=== PATIENT | female | born 1950 | race Caucasian/White ===

== ENCOUNTER → 2017-04-04 | Outpatient (CLI) | payer OTHER ==
[~2017-04-04] MED LIST: ASPI325EC PO; BORAGE OIL PO; CLEAR EYES; CRANBERRY FRUIT PO; CYCL0.05OP OU; DOCU100 PO; EYE DROP; FISH1000 PO; FLAX PO; LEVO750 PO; LISI5 PO; METO25ER PO; MULVITMIND PO; OMEG1CAP30 PO; OXYC5 PO; PRED1SU OD; SENN187 PO; SIMV10 PO; [UNRECOGNIZED DRUG - OTHER] PO
[2017-04-04 18:07] LABS: Hematocrit 35.2 % (33.0-51.0); Hemoglobin 11.1 g/dL (11.5-16.0); Mean Corpuscular HGB 27.2 pg (26.0-34.0); Mean Corpuscular HGB Conc 31.5 g/dL (31.5-36.5); Mean Corpuscular Volume 86 fL (80-100); Mean Platelet Volume 11.1 fL (9.1-12.4); Platelet Count 182 K/mm3 (150-400); RDW Coefficient Variation 15.5 % (11.7-14.2); Red Blood Cell Count 4.08 M/mm3 (3.80-5.20); White Blood Cell Count 11.97 K/mm3 (4.00-11.30)
[2017-04-04 18:18] LABS: Alanine Aminotransfer (ALT/SGP 36 U/L (12-78); Albumin, Blood 2.9 g/dL (3.4-5.0); Albumin/Globulin Ratio 0.6 (0.8-1.8); Alk Phos 103 U/L (40-126); Anion Gap 10 mmol/L (6-16); Aspartate Aminotrans (AST/SGOT 36 U/L (12-37); Bilirubin, Total 0.9 mg/dL (0.1-1.0); Blood Urea Nitrogen 18 mg/dL (8-24); Bun/Creatinine Ratio 13.1 (12.0-20.0); CO2, Blood 24 mmol/L (21-32); Calcium, Blood 8.5 mg/dL (8.5-10.1); Chloride, Blood 102 mmol/L (98-108); Creatinine, Blood 1.37 mg/dL (0.40-1.00); Glomerular Filtration Rate 38 (60-); Glucose, Blood 120 mg/dL (70-99); Potassium, Blood 3.9 mmol/L (3.5-5.5); Sodium, Blood 136 mmol/L (136-145); Total Protein, Blood 7.9 g/dL (6.4-8.2)
[2017-04-04 18:19] LABS: Troponin I <0.017 ng/mL (0.000-0.040)
[2017-04-04 18:49] LABS: BAND PERCENT MAN 11 % (0-8); BASOPHILS PERCENT MAN 0 % (0-2); EOSINOPHILS PERCENT MAN 0 % (0-6); LYMPHOCYTES ABSOLUTE MAN 0.59 K/mm3 (0.84-5.20); LYMPHOCYTES PERCENT MAN 5 % (21-46); MONOCYTES ABSOLUTE MAN 0.11 K/mm3 (0.16-1.47); MONOCYTES PERCENT MAN 1 % (4-13); NEUTROPHILS ABSOLUTE MAN 11.25 K/mm3 (1.96-9.15); SEG NEUTROPHILS PERCENT MAN 83 % (41-73); TOTAL CELLS COUNTED 100
== END | disposition home or self-care (01) ==
LOC: LAB EV 17:57
PROVIDERS: Physician Assistant
DX: R07.9 Chest pain, unspecified (principal)
CPT/HCPCS: 80053; 84484; 85025

== ENCOUNTER → 2019-02-08 | Outpatient (CLI) | payer OTHER | END | disposition home or self-care (01) | LOC: LAB EV 10:51 → LAB SHORT 10:51 | DX: J02.9 Acute pharyngitis, unspecified (principal) | CPT/HCPCS: 87081 ==

== ENCOUNTER 2020-03-27 11:35 | Day surgery (SDC) | payer OTHER ==
[~2020-03-27] VITALS: Ht 154.9 cm; Wt 59.8 kg
[~2020-03-27 11:35] MED LIST changes: +ACET325; +C COMPLEX1000 M1; +EUTHYROX50 MCG PO; +FISH OIL 1,001000 M1 PO; +FISH OIL 1,2001 EAC7; +Floxin10 ML; +LEVOTHYROXINE50 MCG; +LOSA50; +LOSA50 PO; +MELATONIN5 M1 PO; +MELATONIN5 M4; +METO25 PO; +PROM12.5S; +[UNRECOGNIZED DRUG - CODE] PO
[2020-03-27] MEDS ORDERED: Lopressor 25 mg25 MG (12:06)
[2020-03-28 13:27] LABS: Performing Lab SYMBIODX; Test Name TISSUE BIOPSY
[2020-04-07 07:53] LABS: Result SEE PATHOTH RESULTS
== END 2020-03-27 13:32 | disposition home or self-care (01) ==
LOC: ORSCSDS 11:35
PROVIDERS: Pathology Clinical Pathology/Laboratory Medicine; Student in an Organized Health Care Education/Training Program
PROC: 0W3P8ZZ Control Bleeding in Gastrointestinal Tract, Via Natural or Artificial Opening Endoscopic (ICD-10-PCS; principal; 2020-03-27 13:15)
PROC: 0DB78ZX Excision of Stomach, Pylorus, Via Natural or Artificial Opening Endoscopic, Diagnostic (ICD-10-PCS; principal; 2020-03-27 13:15)
PROC: 0DB48ZX Excision of Esophagogastric Junction, Via Natural or Artificial Opening Endoscopic, Diagnostic (ICD-10-PCS; principal; 2020-03-27 13:15)
DX: R13.10 Dysphagia, unspecified (principal); K25.4 Chronic or unspecified gastric ulcer with hemorrhage; I10 Essential (primary) hypertension; E03.9 Hypothyroidism, unspecified; N18.9 Chronic kidney disease, unspecified; I25.10 Atherosclerotic heart disease of native coronary artery without angina pectoris; G47.33 Obstructive sleep apnea (adult) (pediatric); D50.9 Iron deficiency anemia, unspecified; N25.81 Secondary hyperparathyroidism of renal origin; Z79.899 Other long term (current) drug therapy
CPT/HCPCS: 81261; 88305; 88341; 88342; 88360; J2704; J7120

== ENCOUNTER → 2020-05-10 | Outpatient (CLI) | payer OTHER ==
[~2020-05-10] MED LIST changes: +Lopressor 25 mg25 MG
[2020-05-24 10:43] LABS: Performing Lab SYMBODX; Test Name MALT FISH
== END | disposition home or self-care (01) ==
LOC: PLD 10:38 → LAB SHORT 10:38
PROVIDERS: Internal Medicine Hematology & Oncology
DX: C88.4 Extranodal marginal zone B-cell lymphoma of mucosa-associated lymphoid tissue [MALT-lymphoma] (principal)
CPT/HCPCS: 88374

== ENCOUNTER 2020-07-31 08:34 | Day surgery (SDC) | payer OTHER ==
[~2020-07-31] VITALS: Ht 157.5 cm; Wt 58.3 kg
== END 2020-07-31 11:01 | disposition home or self-care (01) ==
LOC: ORSCSDS 08:34
PROVIDERS: Student in an Organized Health Care Education/Training Program
PROC: 0DB78ZX Excision of Stomach, Pylorus, Via Natural or Artificial Opening Endoscopic, Diagnostic (ICD-10-PCS; principal; 2020-07-31 10:45)
DX: C88.4 Extranodal marginal zone B-cell lymphoma of mucosa-associated lymphoid tissue [MALT-lymphoma] (principal); R13.14 Dysphagia, pharyngoesophageal phase; K29.70 Gastritis, unspecified, without bleeding; I25.2 Old myocardial infarction; I10 Essential (primary) hypertension; E03.9 Hypothyroidism, unspecified; N18.9 Chronic kidney disease, unspecified; Z79.899 Other long term (current) drug therapy
CPT/HCPCS: 88305; 88341; 88342; J2704; J7120

== ENCOUNTER → 2021-08-09 | Outpatient (CLI) | payer OTHER | END | disposition home or self-care (01) | LOC: LAB SHORT 13:15 → LAB 13:15 | DX: R06.00 Dyspnea, unspecified (principal); R93.89 Abnormal findings on diagnostic imaging of other specified body structures | CPT/HCPCS: 87070; 87077; 87185; 87186; 87205 ==

== ENCOUNTER 2021-08-27 14:44 | Inpatient (IN) | payer OTHER ==
[~2021-08-27] VITALS: Ht 154.9 cm; Wt 52.3 kg
[~2021-08-27 14:44] MED LIST changes: -LEVOTHYROXINE50 MCG; +LEVOTHYROXINE50 MCG PO; -LOSA50; -Lopressor 25 mg25 MG; +Lopressor 25 mg25 MG PO
[2021-08-27 15:39] LABS: BASOPHILS ABSOLUTE AUTO 0.01 K/mm3 (0.00-0.23); BASOPHILS PERCENT AUTO 0 % (0-2); EOSINOPHILS ABSOLUTE AUTO 0.03 K/mm3 (0.00-0.68); EOSINOPHILS PERCENT AUTO 1 % (0-6); Hematocrit 33.4 % (33.0-51.0); Hemoglobin 10.6 g/dL (11.5-16.0); Mean Corpuscular HGB 26.8 pg (26.0-34.0); Mean Corpuscular HGB Conc 31.7 g/dL (31.5-36.5); Mean Corpuscular Volume 85 fL (80-100); Mean Platelet Volume 11.2 fL (9.1-12.4); Platelet Count 191 K/mm3 (150-400); RDW Coefficient Variation 16.9 % (11.7-14.2); RDW Standard Deviation 52.6 fL (35.1-46.3); Red Blood Cell Count 3.95 M/mm3 (3.80-5.20); White Blood Cell Count 6.17 K/mm3 (4.00-11.30)
[2021-08-27 15:43] LABS: IMMATURE GRAN ABSOLUTE AUTO 0.07 K/mm3 (0.00-0.10); IMMATURE GRAN PERCENT AUTO 1 % (0-1); LYMPHOCYTES ABSOLUTE AUTO 0.22 K/mm3 (0.84-5.20); LYMPHOCYTES PERCENT AUTO 4 % (21-46); MONOCYTES ABSOLUTE AUTO 0.21 K/mm3 (0.16-1.47); MONOCYTES PERCENT AUTO 3 % (4-13); NEUTROPHILS ABSOLUTE AUTO 5.63 K/mm3 (1.96-9.15); NEUTROPHILS PERCENT AUTO 91 % (41-73)
[2021-08-27 16:02] LABS: Albumin, Blood 2.2 g/dL (3.4-5.0); Albumin/Globulin Ratio 0.4 (0.8-1.8); Bilirubin, Total 0.3 mg/dL (0.1-1.0); Bun/Creatinine Ratio 24.4 (12.0-20.0); Calcium, Blood 7.9 mg/dL (8.5-10.1); Creatinine, Blood 1.64 mg/dL (0.40-1.00); Globulin, Blood 5.1 g/dL (2.2-4.0); Potassium, Blood 4.9 mmol/L (3.5-5.5); Total Protein, Blood 7.3 g/dL (6.4-8.2)
[2021-08-27 20:27] LABS: Bun/Creatinine Ratio 25.9 (12.0-20.0); Calcium, Blood 7.6 mg/dL (8.5-10.1); Creatinine, Blood 1.39 mg/dL (0.40-1.00); Potassium, Blood 4.4 mmol/L (3.5-5.5)
[2021-08-27] MEDS ORDERED: ALBU2.5V5 INH (21:05)
[2021-08-28 01:49] LABS: Source, Urine Clean Catch
[2021-08-28 01:55] LABS: Bilirubin, Urine Neg (Neg); Blood, Urine 1+ (Neg); Color, Urine Yellow (P-Yellow); Glucose Qualitative, Urine Neg (Neg); Ketones, Urine Neg (Neg); Leukocyte Esterase, Urine Neg (Neg); Nitrite, Urine Neg (Neg); Protein, Urine 1+ (Neg); Urobilinogen, Urine NORM (Normal)
[2021-08-28 02:02] LABS: Appearance, Urine Clear (Clear)
[2021-08-28 02:03] LABS: Hyaline Casts 0-2 /lpf (0-2)
[2021-08-28 02:04] LABS: Bacteria Mod /hpf; Red Blood Cells, Urine 0-2 /hpf (0-2); Squamous Epithelial Cells Few /hpf (Few)
[2021-08-28 04:14] LABS: BASOPHILS PERCENT AUTO 0 % (0-2); EOSINOPHILS PERCENT AUTO 0 % (0-6); Hematocrit 29.2 % (33.0-51.0); Hemoglobin 9.3 g/dL (11.5-16.0); IMMATURE GRAN ABSOLUTE AUTO 0.04 K/mm3 (0.00-0.10); IMMATURE GRAN PERCENT AUTO 1 % (0-1); LYMPHOCYTES ABSOLUTE AUTO 0.07 K/mm3 (0.84-5.20); LYMPHOCYTES PERCENT AUTO 2 % (21-46); MONOCYTES ABSOLUTE AUTO 0.07 K/mm3 (0.16-1.47); MONOCYTES PERCENT AUTO 2 % (4-13); Mean Corpuscular HGB Conc 31.8 g/dL (31.5-36.5); Mean Corpuscular Volume 85 fL (80-100); Mean Platelet Volume 11.1 fL (9.1-12.4); NEUTROPHILS ABSOLUTE AUTO 2.83 K/mm3 (1.96-9.15); NEUTROPHILS PERCENT AUTO 94 % (41-73); Platelet Count 130 K/mm3 (150-400); RDW Standard Deviation 52.3 fL (35.1-46.3); Red Blood Cell Count 3.45 M/mm3 (3.80-5.20); White Blood Cell Count 3.01 K/mm3 (4.00-11.30)
[2021-08-28 04:46] LABS: Alanine Aminotransfer (ALT/SGP 52 U/L (12-78); Albumin, Blood 1.8 g/dL (3.4-5.0); Albumin/Globulin Ratio 0.4 (0.8-1.8); Alk Phos 97 U/L (50-136); Anion Gap 8 mmol/L (6-16); Aspartate Aminotrans (AST/SGOT 93 U/L (12-37); Bilirubin, Direct <0.1 mg/dL (0.0-0.3); Bilirubin, Indirect Unable to Calculate mg/dL (0.1-0.7); Bilirubin, Total 0.2 mg/dL (0.1-1.0); Blood Urea Nitrogen 31 mg/dL (8-24); Bun/Creatinine Ratio 28.7 (12.0-20.0); CO2, Blood 17 mmol/L (21-32); Calcium, Blood 7.6 mg/dL (8.5-10.1); Chloride, Blood 106 mmol/L (98-108); Creatinine, Blood 1.08 mg/dL (0.40-1.00); Glomerular Filtration Rate 55 (60-); Glucose, Blood 74 mg/dL (70-99); Potassium, Blood 4.2 mmol/L (3.5-5.5); Sodium, Blood 131 mmol/L (136-145); Total Protein, Blood 5.8 g/dL (6.4-8.2)
[2021-08-29 04:37] LABS: BASOPHILS PERCENT AUTO 0 % (0-2); EOSINOPHILS PERCENT AUTO 0 % (0-6); Hematocrit 29.4 % (33.0-51.0); Hemoglobin 9.2 g/dL (11.5-16.0); Mean Corpuscular HGB 26.8 pg (26.0-34.0); Mean Corpuscular HGB Conc 31.3 g/dL (31.5-36.5); Mean Corpuscular Volume 86 fL (80-100); Mean Platelet Volume 11.2 fL (9.1-12.4); Platelet Count 119 K/mm3 (150-400); RDW Coefficient Variation 17.3 % (11.7-14.2); RDW Standard Deviation 54.2 fL (35.1-46.3); Red Blood Cell Count 3.43 M/mm3 (3.80-5.20); White Blood Cell Count 2.49 K/mm3 (4.00-11.30)
[2021-08-29 04:56] LABS: IMMATURE GRAN ABSOLUTE AUTO 0.02 K/mm3 (0.00-0.10); IMMATURE GRAN PERCENT AUTO 1 % (0-1); LYMPHOCYTES ABSOLUTE AUTO 0.03 K/mm3 (0.84-5.20); LYMPHOCYTES PERCENT AUTO 1 % (21-46); MONOCYTES ABSOLUTE AUTO 0.07 K/mm3 (0.16-1.47); MONOCYTES PERCENT AUTO 3 % (4-13); NEUTROPHILS ABSOLUTE AUTO 2.37 K/mm3 (1.96-9.15); NEUTROPHILS PERCENT AUTO 95 % (41-73)
[2021-08-29 04:59] LABS: Albumin, Blood 1.8 g/dL (3.4-5.0); Anion Gap 8 mmol/L (6-16); Blood Urea Nitrogen 22 mg/dL (8-24); Bun/Creatinine Ratio 27.9 (12.0-20.0); CO2, Blood 16 mmol/L (21-32); Calcium, Blood 7.3 mg/dL (8.5-10.1); Chloride, Blood 109 mmol/L (98-108); Creatinine, Blood 0.79 mg/dL (0.40-1.00); Glomerular Filtration Rate 80 (60-); Glucose, Blood 74 mg/dL (70-99); Phosphorus, Blood 2.1 mg/dL (2.5-4.9); Potassium, Blood 4.4 mmol/L (3.5-5.5); Sodium, Blood 133 mmol/L (136-145)
[2021-08-29] MEDS ORDERED: ACET500 PO (12:08)
[2021-08-29] MEDS ORDERED: AUGMENTIN 500-1 EACH PO (12:09)
[2021-08-29] MEDS ORDERED: VISBIOME 112.51 EACH PO (12:10)
== END 2021-08-29 12:58 | disposition home health service (06) | DRG 315 ==
LOC: ER 14:44 → PCU 20:15
PROVIDERS: Internal Medicine; Physician Assistant; ADMIT Internal Medicine
DX: I95.9 Hypotension, unspecified (principal); N17.9 Acute kidney failure, unspecified; E87.1 Hypo-osmolality and hyponatremia; C16.9 Malignant neoplasm of stomach, unspecified; C88.4 Extranodal marginal zone B-cell lymphoma of mucosa-associated lymphoid tissue [MALT-lymphoma]; W18.30XA Fall on same level, unspecified, initial encounter; R63.4 Abnormal weight loss; E03.9 Hypothyroidism, unspecified; N18.30 Chronic kidney disease, stage 3 unspecified; I12.9 Hypertensive chronic kidney disease with stage 1 through stage 4 chronic kidney disease, or unspecified chronic kidney disease; Z98.49 Cataract extraction status, unspecified eye; D63.1 Anemia in chronic kidney disease; I25.10 Atherosclerotic heart disease of native coronary artery without angina pectoris; Z95.1 Presence of aortocoronary bypass graft; Z92.3 Personal history of irradiation; Z88.8 Allergy status to other drugs, medicaments and biological substances; Z79.899 Other long term (current) drug therapy; Z66 Do not resuscitate; E78.00 Pure hypercholesterolemia, unspecified
CPT/HCPCS: 36415; 71045; 80048; 80053; 80069; 80076; 81001; 82550; 83605; 85025; 87086; 94760; 94762; 96374; 96375; 97110; 97162; 97166; 97530; 97535; 99285-25; A9270; J0610; J0696; J1650; J7030

== ENCOUNTER 2021-10-07 10:29 | Emergency (ER) | payer OTHER ==
[~2021-10-07] VITALS: Ht 154.9 cm; Wt 51.7 kg
[~2021-10-07 10:29] MED LIST changes: +ACET500 PO; +ALBU2.5V5 INH; +AUGMENTIN 500-1 EACH PO; +VISBIOME 112.51 EACH PO
== END 2021-10-07 10:57 | disposition home or self-care (01) ==
LOC: ER 10:29
DX: S41.111A Laceration without foreign body of right upper arm, initial encounter (principal); S00.83XA Contusion of other part of head, initial encounter; W01.0XXA Fall on same level from slipping, tripping and stumbling without subsequent striking against object, initial encounter; I10 Essential (primary) hypertension; I25.10 Atherosclerotic heart disease of native coronary artery without angina pectoris; Z88.5 Allergy status to narcotic agent; Z79.899 Other long term (current) drug therapy; Z23 Encounter for immunization
CPT/HCPCS: 90714

== ENCOUNTER 2022-04-09 06:36 | Day surgery (SDC) | payer OTHER ==
[~2022-04-09] VITALS: Ht 154.9 cm; Wt 46.2 kg
[~2022-04-09 06:36] MED LIST changes: +OMEP20ER
[2022-04-09] MEDS ORDERED: IBUP200 (07:10)
[2022-04-09] MEDS ORDERED: EUTHYROX50 MCG (07:11)
[2022-04-09] MEDS ORDERED: PROM12.5S (07:11)
[2022-04-09] MEDS ORDERED: LOSA50 (07:16)
[2022-04-09] MEDS ORDERED: METO25ER (07:16)
[2022-04-16 12:13] LABS: Performing Lab SYMBIODX; Test Name TISSUE BIOPSY
[2022-04-25 10:54] LABS: Result SEE SEPARATE RESULT
== END 2022-04-09 08:52 | disposition home or self-care (01) ==
LOC: ORSCSDS 06:36
PROVIDERS: Pathology Anatomic Pathology & Clinical Pathology; Student in an Organized Health Care Education/Training Program
PROC: 0D768ZZ Dilation of Stomach, Via Natural or Artificial Opening Endoscopic (ICD-10-PCS; principal; 2022-04-09 08:00)
PROC: 0DB78ZX Excision of Stomach, Pylorus, Via Natural or Artificial Opening Endoscopic, Diagnostic (ICD-10-PCS; principal; 2022-04-09 08:00)
DX: C88.4 Extranodal marginal zone B-cell lymphoma of mucosa-associated lymphoid tissue [MALT-lymphoma] (principal); K29.70 Gastritis, unspecified, without bleeding; R13.14 Dysphagia, pharyngoesophageal phase; K44.9 Diaphragmatic hernia without obstruction or gangrene; K31.1 Adult hypertrophic pyloric stenosis; K25.9 Gastric ulcer, unspecified as acute or chronic, without hemorrhage or perforation; I10 Essential (primary) hypertension; K21.9 Gastro-esophageal reflux disease without esophagitis; E03.9 Hypothyroidism, unspecified; I25.10 Atherosclerotic heart disease of native coronary artery without angina pectoris; N18.30 Chronic kidney disease, stage 3 unspecified; Z79.899 Other long term (current) drug therapy
CPT/HCPCS: 88305; 88341; 88342; C1726; J2704; J7120

== ENCOUNTER 2022-07-25 14:02 | Emergency (ER) | payer OTHER ==
[~2022-07-25] VITALS: Ht 154.9 cm; Wt 47.2 kg
[~2022-07-25 14:02] MED LIST changes: +EUTHYROX50 MCG; +IBUP200; +LOSA50; +METO25ER
[2022-07-25 15:06] LABS: BASOPHILS PERCENT AUTO 0 % (0-2); EOSINOPHILS PERCENT AUTO 0 % (0-6); Hematocrit 33.1 % (33.0-51.0); Hemoglobin 10.2 g/dL (11.5-16.0); IMMATURE GRAN ABSOLUTE AUTO 0.01 K/mm3 (0.00-0.10); IMMATURE GRAN PERCENT AUTO 0 % (0-1); LYMPHOCYTES PERCENT AUTO 12 % (21-46); MONOCYTES ABSOLUTE AUTO 0.21 K/mm3 (0.16-1.47); MONOCYTES PERCENT AUTO 8 % (4-13); Mean Corpuscular HGB 27.8 pg (26.0-34.0); Mean Corpuscular HGB Conc 30.8 g/dL (31.5-36.5); Mean Corpuscular Volume 90 fL (80-100); NEUTROPHILS PERCENT AUTO 79 % (41-73); RDW Coefficient Variation 15.4 % (11.7-14.2); RDW Standard Deviation 50.5 fL (35.1-46.3); Red Blood Cell Count 3.67 M/mm3 (3.80-5.20); White Blood Cell Count 2.67 K/mm3 (4.00-11.30)
[2022-07-25 15:08] LABS: LYMPHOCYTES ABSOLUTE AUTO 0.32 K/mm3 (0.84-5.20); Mean Platelet Volume 10.4 fL (9.1-12.4); NEUTROPHILS ABSOLUTE AUTO 2.08 K/mm3 (1.96-9.15); Platelet Count 131 K/mm3 (150-400)
[2022-07-25 15:46] LABS: Albumin, Blood 1.7 g/dL (3.4-5.0); Albumin/Globulin Ratio 0.3 (0.8-1.8); Bilirubin, Total 0.4 mg/dL (0.1-1.0); Bun/Creatinine Ratio 20.2 (12.0-20.0); Calcium, Blood 10.1 mg/dL (8.5-10.1); Creatinine, Blood 1.09 mg/dL (0.40-1.00); Globulin, Blood 6.5 g/dL (2.2-4.0); Magnesium, Blood 2.4 mg/dL (1.6-2.4); Phosphorus, Blood 4.3 mg/dL (2.5-4.9); Potassium, Blood 2.9 mmol/L (3.5-5.5); Total Protein, Blood 8.2 g/dL (6.4-8.2)
[2022-07-25 16:15] VITALS: BP 173/84
[2022-07-25] MEDS ORDERED: K-TAB ER20 ME1 PO (16:51)
== END 2022-07-25 17:00 | disposition home or self-care (01) ==
LOC: ER 14:02
PROVIDERS: Physician Assistant
DX: E87.6 Hypokalemia (principal); R19.7 Diarrhea, unspecified; C85.10 Unspecified B-cell lymphoma, unspecified site; D61.818 Other pancytopenia; Z88.5 Allergy status to narcotic agent; Z79.899 Other long term (current) drug therapy; I25.10 Atherosclerotic heart disease of native coronary artery without angina pectoris; E78.00 Pure hypercholesterolemia, unspecified; I10 Essential (primary) hypertension
CPT/HCPCS: 36415; 80053; 83735; 84100; 85025; 93005; 93010; 99283-25; A9270

== ENCOUNTER → 2022-09-26 | Outpatient (CLI) | payer OTHER ==
[~2022-09-26] MED LIST changes: +K-TAB ER20 ME1 PO
[2022-09-26 10:50] LABS: BASOPHILS ABSOLUTE AUTO 0.03 K/mm3 (0.00-0.23); BASOPHILS PERCENT AUTO 1 % (0-2); Hematocrit 32.1 % (33.0-51.0); Hemoglobin 9.7 g/dL (11.5-16.0); LYMPHOCYTES ABSOLUTE AUTO 0.43 K/mm3 (0.84-5.20); LYMPHOCYTES PERCENT AUTO 8 % (21-46); MONOCYTES PERCENT AUTO 7 % (4-13); Mean Corpuscular HGB Conc 30.2 g/dL (31.5-36.5); Mean Corpuscular Volume 76 fL (80-100); Mean Platelet Volume 10.1 fL (9.1-12.4); Platelet Count 469 K/mm3 (150-400); RDW Coefficient Variation 16.9 % (11.7-14.2); RDW Standard Deviation 46.6 fL (35.1-46.3); Red Blood Cell Count 4.21 M/mm3 (3.80-5.20); White Blood Cell Count 5.66 K/mm3 (4.00-11.30)
[2022-09-26 11:07] LABS: Albumin, Blood 1.7 g/dL (3.4-5.0); Albumin/Globulin Ratio 0.3 (0.8-1.8); Bilirubin, Total 0.2 mg/dL (0.1-1.0); Bun/Creatinine Ratio 39.7 (12.0-20.0); Calcium, Blood 8.3 mg/dL (8.5-10.1); Creatinine, Blood 0.73 mg/dL (0.40-1.00); Globulin, Blood 6.4 g/dL (2.2-4.0); Potassium, Blood 4.7 mmol/L (3.5-5.5); Total Protein, Blood 8.1 g/dL (6.4-8.2)
[2022-09-26 11:20] LABS: EOSINOPHILS ABSOLUTE AUTO 0.01 K/mm3 (0.00-0.68); EOSINOPHILS PERCENT AUTO 0 % (0-6); IMMATURE GRAN ABSOLUTE AUTO 0.69 K/mm3 (0.00-0.10); IMMATURE GRAN PERCENT AUTO 12 % (0-1); NEUTROPHILS PERCENT AUTO 72 % (41-73)
== END | disposition home or self-care (01) ==
LOC: LAB 10:45 → LAB SHORT 10:45
PROVIDERS: Physician Assistant
DX: R22.1 Localized swelling, mass and lump, neck (principal)
CPT/HCPCS: 80053; 85025

== ENCOUNTER → 2022-10-09 | Outpatient (CLI) | payer OTHER | END | disposition home or self-care (01) | LOC: PLD 07:39 → LAB SHORT 07:39 → LAB 07:39 | DX: D49.0 Neoplasm of unspecified behavior of digestive system (principal) | CPT/HCPCS: 88173 ==

== ENCOUNTER → 2022-10-10 | Outpatient (CLI) | payer OTHER ==
[2022-10-10 16:08] LABS: Hematocrit 32.8 % (33.0-51.0); Hemoglobin 9.5 g/dL (11.5-16.0); Mean Corpuscular HGB 22.1 pg (26.0-34.0); Mean Corpuscular Volume 76 fL (80-100); Mean Platelet Volume 10.2 fL (9.1-12.4); Platelet Count 323 K/mm3 (150-400); RDW Coefficient Variation 17.9 % (11.7-14.2); RDW Standard Deviation 48.3 fL (35.1-46.3); White Blood Cell Count 4.68 K/mm3 (4.00-11.30)
[2022-10-10 16:59] LABS: BAND PERCENT MAN 6 % (0-8); BASOPHILS PERCENT MAN 0 % (0-2); EOSINOPHILS PERCENT MAN 0 % (0-6); LYMPHOCYTES ABSOLUTE MAN 0.79 K/mm3 (0.84-5.20); LYMPHOCYTES PERCENT MAN 17 % (21-46); MONOCYTES ABSOLUTE MAN 0.56 K/mm3 (0.16-1.47); MONOCYTES PERCENT MAN 12 % (4-13); NEUTROPHILS ABSOLUTE MAN 3.32 K/mm3 (1.96-9.15); SEG NEUTROPHILS PERCENT MAN 65 % (41-73); TOTAL CELLS COUNTED 100
[2022-10-10 17:32] LABS: Albumin, Blood 1.8 g/dL (3.4-5.0); Albumin/Globulin Ratio 0.3 (0.8-1.8); Bilirubin, Total 0.2 mg/dL (0.1-1.0); Bun/Creatinine Ratio 43.5 (12.0-20.0); Calcium, Blood 7.9 mg/dL (8.5-10.1); Creatinine, Blood 0.71 mg/dL (0.40-1.00); Globulin, Blood 5.3 g/dL (2.2-4.0); Total Protein, Blood 7.1 g/dL (6.4-8.2)
== END ==
LOC: LAB FUT 09-06 15:00 → LAB 13:57 → LAB SHORT 13:57 → LAB FUT 08-01 14:20
PROVIDERS: Internal Medicine Hematology & Oncology
DX: C88.4 Extranodal marginal zone B-cell lymphoma of mucosa-associated lymphoid tissue [MALT-lymphoma] (principal)
CPT/HCPCS: 36415; 80053; 85025

== ENCOUNTER 2022-10-19 19:38 | Inpatient (IN) | payer OTHER ==
[~2022-10-19] VITALS: Ht 160 cm; Wt 38.1 kg
[~2022-10-19 19:38] MED LIST changes: -EUTHYROX50 MCG; -OMEP20ER; +OMEP20ER PO
[2022-10-19 21:01] LABS: Hematocrit 32.1 % (33.0-51.0); Hemoglobin 9.4 g/dL (11.5-16.0); Mean Corpuscular HGB 21.9 pg (26.0-34.0); Mean Corpuscular HGB Conc 29.3 g/dL (31.5-36.5); Mean Corpuscular Volume 75 fL (80-100); Mean Platelet Volume 9.2 fL (9.1-12.4); Platelet Count 312 K/mm3 (150-400); RDW Standard Deviation 48.2 fL (35.1-46.3); White Blood Cell Count 3.13 K/mm3 (4.00-11.30)
[2022-10-19 21:26] LABS: BAND PERCENT MAN 4 % (0-8); BASOPHILS PERCENT MAN 0 % (0-2); EOSINOPHILS PERCENT MAN 0 % (0-6); LYMPHOCYTES % ATYPICAL MANUAL 1 % (0-0); LYMPHOCYTES ABSOLUTE MAN 0.28 K/mm3 (0.84-5.20); LYMPHOCYTES PERCENT MAN 8 % (21-46); MONOCYTES ABSOLUTE MAN 0.21 K/mm3 (0.16-1.47); MONOCYTES PERCENT MAN 7 % (4-13); NEUTROPHILS ABSOLUTE MAN 2.62 K/mm3 (1.96-9.15); SEG NEUTROPHILS PERCENT MAN 80 % (41-73); TOTAL CELLS COUNTED 100
[2022-10-19 21:30] LABS: Albumin, Blood 1.7 g/dL (3.4-5.0); Albumin/Globulin Ratio 0.3 (0.8-1.8); Bilirubin, Total 0.2 mg/dL (0.1-1.0); Bun/Creatinine Ratio 44.5 (12.0-20.0); Calcium, Blood 7.9 mg/dL (8.5-10.1); Creatinine, Blood 0.54 mg/dL (0.40-1.00); Globulin, Blood 5.4 g/dL (2.2-4.0); Potassium, Blood 5.1 mmol/L (3.5-5.5); Total Protein, Blood 7.1 g/dL (6.4-8.2)
[2022-10-19 23:52] LABS: Source, Urine Clean Catch
[2022-10-19 23:56] LABS: Bilirubin, Urine Neg (Neg); Blood, Urine Neg (Neg); Glucose Qualitative, Urine Neg (Neg); Ketones, Urine Neg (Neg); Leukocyte Esterase, Urine Neg (Neg); Nitrite, Urine Neg (Neg); Protein, Urine Neg (Neg); Urobilinogen, Urine NORM (Normal)
[2022-10-19 23:59] LABS: Appearance, Urine Clear (Clear); Color, Urine Yellow (P-Yellow)
[2022-10-20 03:50] VITALS: BP 147/80
[2022-10-20 05:01] LABS: Hematocrit 28.2 % (33.0-51.0); Mean Corpuscular HGB 21.4 pg (26.0-34.0); Mean Corpuscular HGB Conc 28.4 g/dL (31.5-36.5); Mean Corpuscular Volume 76 fL (80-100); Mean Platelet Volume 9.5 fL (9.1-12.4); Platelet Count 289 K/mm3 (150-400); RDW Standard Deviation 49.1 fL (35.1-46.3); Red Blood Cell Count 3.73 M/mm3 (3.80-5.20); White Blood Cell Count 2.54 K/mm3 (4.00-11.30)
[2022-10-20 05:25] LABS: Bun/Creatinine Ratio 39.5 (12.0-20.0); Calcium, Blood 7.5 mg/dL (8.5-10.1); Creatinine, Blood 0.53 mg/dL (0.40-1.00); Potassium, Blood 4.3 mmol/L (3.5-5.5)
[2022-10-20 05:34] LABS: BAND PERCENT MAN 13 % (0-8); BASOPHILS PERCENT MAN 0 % (0-2); EOSINOPHILS PERCENT MAN 0 % (0-6); LYMPHOCYTES ABSOLUTE MAN 0.33 K/mm3 (0.84-5.20); LYMPHOCYTES PERCENT MAN 13 % (21-46); MONOCYTES ABSOLUTE MAN 0.38 K/mm3 (0.16-1.47); MONOCYTES PERCENT MAN 15 % (4-13); NEUTROPHILS ABSOLUTE MAN 1.82 K/mm3 (1.96-9.15); SEG NEUTROPHILS PERCENT MAN 59 % (41-73); TOTAL CELLS COUNTED 100
--- NOTE | 2022-10-20 06:04 | NUR ---
SHIFT SUMMARY/ADMISSION NOTE PATIENT ARRIVED AT 03:40 FROM ED, ACCOMPANIED BY DAUGHTER, MARQUITA MUNGUIA. IS ALERT/ORIENTED, PLEASANT, DENIES PAIN NOR DISCOMFORT. HISTORY PER DAUGHTER. PATIENT HAS CONTINUED TO DECLINE SINCE CANCER TREATMENT, POOR APPITITE, WHEIGHT LOSS, AND FOR PAST 3 DAYS NO LONGER ABLE TO EAT SOLID FOOD, ONLY ENSURE DRINKS. PLAN IS TO HAVE G-TUBE PLACED WHILE AWAITING ENDOSCOPY, DAUGHTER WANTING TO HAVE IT DONE IN-PATIENT WHILE HERE DUE TO SIGNIFICANT DECLINE. ALL BONY PROMINANCES CLEAR OF ANY S/Sx OF PRESSURE RELATED SKIN INTEGRITY CONCERN. SCATTERED BRUISES TO BILATERAL FA'S. PATIENT STATES THESE ARE ALL HER OWN FAULT, SKIN IS VERY THIN AND FRAGILE AND DOG JUMPED IN HER LAP AND ACCIDENTLY SCRATCHED HER ARM. PATIENT IS 1 ASSIST TO BSC. NPO STATUS. PIV TO RIGHT AC INFUSING NS@100mL/HR. RESTING IN BED IN NO ACUTE DISTRESS AT THIS TIME. BED LOW, CALL LIGHT WITHIN REACH.
[2022-10-20 07:25] VITALS: BP 127/66
[2022-10-20 16:02] VITALS: BP 119/71
--- NOTE | 2022-10-20 18:20 | NUR ---
SHIFT SUMMARY: PATIENT A&OX3-4. CALM, PLEASANT AND COOPERATIVE c CARE. VERY FRAIL LOOKING AND FRAGILE SKIN. PATIENT DENIES N/V, SOB, CP/PRESSURE. FL DIET, ATE COUPLE BITES FOR LUNCH AND DINNER. PATIENT CONTINUES TO REPORTS FEELING FULL AFTER EATING COUPLE BITES OF EACH MEALS. DRANK 2 BOTTLES OF VANILLA ENSURE THIS SHIFT. PATIENT IS CONT/INCONT OF BOWELS AND HAD 3 LOOSE DARK GREEN BM AND CONTINENCE OF BLADDER. PATIENT HAS BEEN AMBULATING TO BATHROOM AND BACK IN BED c SBA. PIV TO RAC INFUSING NS AT 100 MLS/HR. POWERGLIDE TO LANCE INFUSING CLINIMIX AT 57 MLS/HR. VITAL SIGNS REVIEWED. CALL LIGHT IN REACH. PATIENT EDUCATED ON NON SMOKING POLICY, RISK OF INJURY AND IGNITION SOURCES WHEN O2 IN USE. PATIENT DENIES SMOKING AND STATED UNDERSTANDING.
[2022-10-20 19:17] VITALS: BP 139/79
[2022-10-21 02:00] VITALS: BP 149/80
[2022-10-21 05:23] LABS: Hematocrit 25.7 % (33.0-51.0); Hemoglobin 7.4 g/dL (11.5-16.0); Mean Corpuscular HGB 21.6 pg (26.0-34.0); Mean Corpuscular HGB Conc 28.8 g/dL (31.5-36.5); Mean Corpuscular Volume 75 fL (80-100); Mean Platelet Volume 9.3 fL (9.1-12.4); Platelet Count 279 K/mm3 (150-400); RDW Coefficient Variation 18.3 % (11.7-14.2); RDW Standard Deviation 49.1 fL (35.1-46.3); Red Blood Cell Count 3.42 M/mm3 (3.80-5.20); White Blood Cell Count 2.14 K/mm3 (4.00-11.30)
[2022-10-21 05:45] LABS: Bun/Creatinine Ratio 53.6 (12.0-20.0); Calcium, Blood 7.2 mg/dL (8.5-10.1); Creatinine, Blood 0.39 mg/dL (0.40-1.00); Potassium, Blood 4.2 mmol/L (3.5-5.5)
[2022-10-21 05:51] LABS: BAND PERCENT MAN 4 % (0-8); BASOPHILS PERCENT MAN 0 % (0-2); EOSINOPHILS PERCENT MAN 0 % (0-6); LYMPHOCYTES ABSOLUTE MAN 0.55 K/mm3 (0.84-5.20); LYMPHOCYTES PERCENT MAN 26 % (21-46); METAMYELOCYTE ABSOLUTE MAN 0.02 K/mm3 (0.00-0.00); METAMYELOCYTE PERCENT MAN 1 % (0-0); MONOCYTES PERCENT MAN 5 % (4-13); NEUTROPHILS ABSOLUTE MAN 1.45 K/mm3 (1.96-9.15); SEG NEUTROPHILS PERCENT MAN 64 % (41-73); TOTAL CELLS COUNTED 100
--- NOTE | 2022-10-21 07:38 | NUR ---
SHIFT SUMMARY PATIENT ALERT, PLEASANT, INTERACTIVE. DENIES PAIN NOR DISCOMFORT. REQUIRES 1 ASSIST FOR TRANSFERS/BATHROOM. NO ACUTE CHANGES NOTED OVERNIGHT. DAUGHTER AT BEDSIDE AT BEGINING OF SHIFT. EDUCATED ON FIRE SAFETY AND RISK OF INJURY R/T OXYGEN USE, VERBALIZED UNDERSTANDING. BED LOW, CALL LIGHT WITHIN REACH.
[2022-10-21 07:55] VITALS: BP 137/80
[2022-10-21 12:10] LABS: Magnesium, Blood 1.9 mg/dL (1.6-2.4); Percent Saturation 11.8 % (15.0-50.0)
[2022-10-21 12:15] LABS: Phosphorus, Blood 2.8 mg/dL (2.5-4.9)
[2022-10-21 15:28] VITALS: BP 143/88
--- NOTE | 2022-10-21 16:05 | NUR ---
SHIFT SUMMARY PATIENT IS ALERT AND ORIENTED X2. PATIENT HAS HAD NO ACUTE EVENTS THIS SHIFT. VITAL SIGNS REVIEWED. PATIENT IS BEING STARTED ON TPN AT 1700. NS HAS BEEN RUNNING ALL SHIFT. PATIENT IS A 1 PERSON ASSIST TO THE BATHROOM. SCATTERED BRUSING NOTATED. GRANDDAUGHTER SUSAN UPDATED ON PATIENTS CARE. PATIENT HAS NOT COMPLAINED OF NAUSEA, SOB, VOMITTING OR PAIN. BED IN LOCKED AND LOWEST POSITION. CALL LIGHT IN PLACE. WILL MONITOR UNTIL SHIFT CHANGE.
[2022-10-21 19:28] VITALS: BP 159/91
[2022-10-21] MEDS ORDERED: LOSA50 PO (22:35)
[2022-10-21] MEDS ORDERED: METOPROLOL TART25 MG PO (22:36)
[2022-10-21] MEDS ORDERED: Ventolin/Prove6.7 GM INH (22:38)
[2022-10-21] MEDS ORDERED: OXYC5 PO (22:38)
[2022-10-21] MEDS ORDERED: DEXA2 PO (22:39)
[2022-10-22] VITALS (26 sets, daily range): BP systolic 97–160; BP diastolic 60–93
[2022-10-22 05:10] LABS: Hematocrit 27.1 % (33.0-51.0); Mean Corpuscular HGB 21.9 pg (26.0-34.0); Mean Corpuscular HGB Conc 29.5 g/dL (31.5-36.5); Mean Corpuscular Volume 74 fL (80-100); Mean Platelet Volume 9.5 fL (9.1-12.4); Platelet Count 314 K/mm3 (150-400); RDW Coefficient Variation 18.3 % (11.7-14.2); RDW Standard Deviation 48.9 fL (35.1-46.3); Red Blood Cell Count 3.66 M/mm3 (3.80-5.20)
[2022-10-22 05:32] LABS: BAND PERCENT MAN 3 % (0-8); BASOPHILS PERCENT MAN 0 % (0-2); EOSINOPHILS PERCENT MAN 0 % (0-6); LYMPHOCYTES ABSOLUTE MAN 0.29 K/mm3 (0.84-5.20); LYMPHOCYTES PERCENT MAN 13 % (21-46); MONOCYTES ABSOLUTE MAN 0.13 K/mm3 (0.16-1.47); MONOCYTES PERCENT MAN 6 % (4-13); NEUTROPHILS ABSOLUTE MAN 1.86 K/mm3 (1.96-9.15); SEG NEUTROPHILS PERCENT MAN 78 % (41-73); TOTAL CELLS COUNTED 100
[2022-10-22 05:58] LABS: Anion Gap 5 mmol/L (6-16); Blood Urea Nitrogen 14 mg/dL (8-24); Bun/Creatinine Ratio 33.4 (12.0-20.0); CO2, Blood 23 mmol/L (21-32); Calcium, Blood 7.7 mg/dL (8.5-10.1); Chloride, Blood 108 mmol/L (98-108); Creatinine, Blood 0.42 mg/dL (0.40-1.00); Glomerular Filtration Rate 104 (60-); Glucose, Blood 105 mg/dL (70-99); Magnesium, Blood 1.8 mg/dL (1.6-2.4); Phosphorus, Blood 4.1 mg/dL (2.5-4.9); Potassium, Blood 4.2 mmol/L (3.5-5.5); Sodium, Blood 136 mmol/L (136-145); Triglycerides 136 mg/dL (30-160)
--- NOTE | 2022-10-22 06:10 | NUR ---
SHIFT SUMMARY NO C/O PAIN, NO EVENTS OVERNIGHT. Q1H FIRE SAFETY CHECKS COMPLETED, NO IGNITION SOURCES IDENTIFIED.
--- NOTE | 2022-10-22 14:40 | NUR ---
PT HAS A POWERGLIDE LUE THAT FLUSHES WELL AND FLOWS TO GRAVITY.
--- NOTE | 2022-10-22 16:20 | NUR ---
10/22/22 1620 Karel Ashley SEE ANESTHESIA RECORD.
--- NOTE | 2022-10-22 19:23 | NUR ---
SHIFT SUMMARY A&0X4, COOPERATIVE WITH CARE, OCCASIONALLY SLOW TO RESPOND. SOFT SPOKEN. HAD EGD DONE AT 1500 TODAY. FAMILY CURRENTLY WAITING FOR DR TO UPDATE THEM. SOURCES OF IGNITION ASSESSED FOR DURING HOURLY ROUNDING. PT DENIED PAIN T/O SHIFT. PT RECEIVING PPN. NO ACUTE CHANGES THIS SHIFT. FAMILY PRESENT WITH HER. CALL LIGHT WITHIN REACH.
[2022-10-23 04:02] VITALS: BP 163/93
--- NOTE | 2022-10-23 04:18 | NUR ---
SHIFT SUMMARY PT HAS RESTED WELL MOST OF SHIFT. UP WITH 1 SBA TO RESTROOM. PPN INFUSING PER ORDERS. DENIES PAIN AND N/V. USES CALL LIGHT APPROPRIATELY.
[2022-10-23 04:55] LABS: Hematocrit 26.3 % (33.0-51.0); Hemoglobin 7.7 g/dL (11.5-16.0); Mean Corpuscular HGB 21.6 pg (26.0-34.0); Mean Corpuscular HGB Conc 29.3 g/dL (31.5-36.5); Mean Corpuscular Volume 74 fL (80-100); Mean Platelet Volume 9.5 fL (9.1-12.4); Platelet Count 309 K/mm3 (150-400); RDW Coefficient Variation 18.4 % (11.7-14.2); Red Blood Cell Count 3.57 M/mm3 (3.80-5.20); White Blood Cell Count 2.24 K/mm3 (4.00-11.30)
[2022-10-23 05:10] LABS: Bun/Creatinine Ratio 34.6 (12.0-20.0); Calcium, Blood 7.8 mg/dL (8.5-10.1); Creatinine, Blood 0.41 mg/dL (0.40-1.00); Magnesium, Blood 1.9 mg/dL (1.6-2.4); Phosphorus, Blood 4.5 mg/dL (2.5-4.9); Potassium, Blood 4.6 mmol/L (3.5-5.5)
[2022-10-23 05:36] LABS: BASOPHILS PERCENT MAN 0 % (0-2); EOSINOPHILS ABSOLUTE MAN 0.02 K/mm3 (0.00-0.68); EOSINOPHILS PERCENT MAN 1 % (0-6); LYMPHOCYTES ABSOLUTE MAN 0.35 K/mm3 (0.84-5.20); LYMPHOCYTES PERCENT MAN 16 % (21-46); METAMYELOCYTE ABSOLUTE MAN 0.02 K/mm3 (0.00-0.00); METAMYELOCYTE PERCENT MAN 1 % (0-0); MONOCYTES ABSOLUTE MAN 0.11 K/mm3 (0.16-1.47); MONOCYTES PERCENT MAN 5 % (4-13); NEUTROPHILS ABSOLUTE MAN 1.72 K/mm3 (1.96-9.15); SEG NEUTROPHILS PERCENT MAN 77 % (41-73); TOTAL CELLS COUNTED 100
[2022-10-23 07:19] VITALS: BP 144/90
[2022-10-23] MEDS ORDERED: LOSARTAN POTASS25 MG PO (12:13)
[2022-10-23] MEDS ORDERED: Diflucan100 MG PO (12:14)
[2022-10-23] MEDS ORDERED: METO5A PO (12:17)
[2022-10-23 14:58] VITALS: BP 149/91
--- NOTE | 2022-10-23 18:00 | NUR ---
SUMMARY PATIENT SCHEDULED FOR DISCHARGE. DISCHARGE CANCELED PER FAMILY'S REQUEST BECAUSE OF THEIR CONCERNS ABOUT ORAL INTAKE AND WEIGHT LOSS. PATIENT TO HAVE ESOPHAGEAL DIALATION AN OUTPATIENT. IV'S DC'D FOR DISCHARGE BEFORE FAMILY EXPRESSED CONCERNS AND APPEALED DISCHARGE. CHARGE NURSE NOTIFIED FOR NEW POWER GLIDE PLACEMENT. PATIENT UP TO BR FREQUENTLY FOR LOOSE STOOLS. PATIENT ONLY TOLERATING SMALL AMOUNTS OF FULL LIQUID DIET.
[2022-10-23 19:23] VITALS: BP 150/89
[2022-10-24 02:33] VITALS: BP 131/79
--- NOTE | 2022-10-24 04:54 | NUR ---
SHIFT SUMMARY; NO ACUTE CHANGES. THE PT IS AXO X4 AND A STANDBY ASSIST TO THE BATHROOM. THE PT CALLS APPROPRIATELY FOR A STANDBY ASSIST TO THE BATHROOM. THE PT HAS BEEN RESTING IN BED THROUGHOUT THE NIGHT. CURRENTLY THE PT HAS NO IV ACCESS W/ A ORDER. THE NEED FOR A PICC LINE TO BE PLACED AND TPN TO RESUMED IS TO ASSESSED TODAY. THE PT HAS ENDORSED SOME STOMACH DISCOMFORT T/O THE NIGHT THAT SHE DESCRIBES COMING AND GOING IN WAVES. THE PT DENIES ANY PAIN, SOB, CHEST PAIN/PRESSURE OR N/V. CURRENTLY THE PT IS SLEEPING IN BED WITH THE BED IN THE LOWEST POSITION AND THE CALL LIGHT AT BEDSIDE. FIRE SAFETY MAINTAINED T/O THE NIGHT.
[2022-10-24 05:40] LABS: Hematocrit 27.9 % (33.0-51.0); Hemoglobin 8.2 g/dL (11.5-16.0); Mean Corpuscular HGB 21.6 pg (26.0-34.0); Mean Corpuscular HGB Conc 29.4 g/dL (31.5-36.5); Mean Corpuscular Volume 73 fL (80-100); Mean Platelet Volume 9.8 fL (9.1-12.4); Platelet Count 290 K/mm3 (150-400); RDW Coefficient Variation 18.6 % (11.7-14.2); RDW Standard Deviation 48.8 fL (35.1-46.3); White Blood Cell Count 2.84 K/mm3 (4.00-11.30)
[2022-10-24 06:03] LABS: Bun/Creatinine Ratio 25.9 (12.0-20.0); Calcium, Blood 7.9 mg/dL (8.5-10.1); Creatinine, Blood 0.46 mg/dL (0.40-1.00); Magnesium, Blood 1.9 mg/dL (1.6-2.4); Potassium, Blood 4.3 mmol/L (3.5-5.5)
[2022-10-24 06:48] LABS: BAND PERCENT MAN 5 % (0-8); BASOPHILS PERCENT MAN 0 % (0-2); EOSINOPHILS ABSOLUTE MAN 0.02 K/mm3 (0.00-0.68); EOSINOPHILS PERCENT MAN 1 % (0-6); LYMPHOCYTES ABSOLUTE MAN 0.25 K/mm3 (0.84-5.20); LYMPHOCYTES PERCENT MAN 9 % (21-46); METAMYELOCYTE ABSOLUTE MAN 0.02 K/mm3 (0.00-0.00); METAMYELOCYTE PERCENT MAN 1 % (0-0); MONOCYTES ABSOLUTE MAN 0.14 K/mm3 (0.16-1.47); MONOCYTES PERCENT MAN 5 % (4-13); NEUTROPHILS ABSOLUTE MAN 2.38 K/mm3 (1.96-9.15); SEG NEUTROPHILS PERCENT MAN 79 % (41-73); TOTAL CELLS COUNTED 100
[2022-10-24 07:21] VITALS: BP 142/86
[2022-10-24 09:11] VITALS: BP 125/87
[2022-10-24 16:44] VITALS: BP 132/87
[2022-10-24 19:28] VITALS: BP 127/77
--- NOTE | 2022-10-24 20:18 | NUR ---
SHIFT SUMMARY: IDA IS A&OX4, CACHECTIC. SHE USES THE CALL LIGHT APPROPRIATELY. SHE SLEPT FOR A SIGNIFICANT PORTION OF THE SHIFT AND REPORTED WEAKNESS, PREFERING TO USE THE BEDSIDE COMMODE INSTEAD OF WALKING INTO THE BATHROOM. SHE IS A ONE PERSON ASSIST. FAMILY MEMEBERS AT BEDSIDE THROUGHOUT THE DAY. CALLED HOSPITALIST AT REQUEST OF FAMILY MEMBER TO ENQUIRE ABOUT GI CONSULT, REFERRAL TO [facility], AND DISCHARGE PLAN. ALSO CONSULTED CARE COORDINATION AND SECURITY FIELD SUPERVISOR. FAMILY MEMBER ALSO REQUESTED A PALLIATIVE CARE CONSULT, WHICH WAS ALREADY ACTIVE, AND REQUESTED THAT PALLIATIVE CARE BE CALLED. PLEASE SEE PALLIATIVE NOTE. PT SLOW TO RESPOND TO QUESTIONS, SOMETIMES NOT ANSWERING AT ALL. DR. LYMAN SPOKE WITH PT AND FAMILY AT BEDSIDE TODAY. FAMILY MEMBER REQUESTED THIS RN CALL THE HOSPITALIST AGAIN TO DISCUSS DOBHOFF PLACEMENT. CALLED HOSPITALIST, NO NEW ORDERS AT THIS TIME. CALLED SECURITY FIELD SUPERVISOR TO DISCUSS CONSULTING PT FOR POSSIBLE DOBHOFF NUTRITION, SECURITY FIELD SUPERVISOR UNFORTUNATELY UNAVAILABLE, BUT STATES WILL CONSULT TOMORROW. PT HAD MINIMAL PO INTAKE THROUGHOUT THE DAY. FAMILY AGREEABLE TO BEGIN CLINIMIX INFUSION. FAMILY MEMBER REQUESTED THIS RN CALL THE HOSPITALIST REGARDING A SURGICAL CONSULT SINCE THEY HAVE DECIDED TO PERSUE POSSIBLE J-TUBE PLACEMENT. CALLED SURGICAL CONSULT. ATTENDS IN PLACE, CALL LIGHT IN REACH. PT IS RESTING QUIETLY IN BED WITH HER EYES CLOSED. REPORT WAS GIVEN TO LARYNGOLOGIST RN.
[2022-10-25 03:46] VITALS: BP 125/73
--- NOTE | 2022-10-25 04:54 | NUR ---
SHIFT SUMMARY; NO ACUTE CHANGES OVERNIGHT. THE PT IS AXO X4 AND A 1 ASSIST TO THE BSC. THE PT HAS BEEN SLEEPING FOR THE MAJORITY OF THE NIGHT. THE PT HAS BEEN WEAKER TONIGHT THAN THE PREVIOUS NIGHT. CLINIMIX REMAINS RUNNING AT 50MLS/HR. THE PT DENIES ANY PAIN, CHEST PAIN/PRESSURE, SOB OR N/V THIS SHIFT. CURRENTLY THE PT IS SLEEPING IN BED WITH THE BED IN THE LOWEST POSITION AND THE CALL LIGHT AT BEDSIDE. FIRE SAFETY MAINTAINED T/O THE SHIFT.
[2022-10-25 06:14] LABS: Bun/Creatinine Ratio 40.8 (12.0-20.0); Calcium, Blood 7.4 mg/dL (8.5-10.1); Creatinine, Blood 0.54 mg/dL (0.40-1.00); Magnesium, Blood 1.8 mg/dL (1.6-2.4); Phosphorus, Blood 3.6 mg/dL (2.5-4.9); Potassium, Blood 4.3 mmol/L (3.5-5.5)
[2022-10-25 07:25] VITALS: BP 114/79
[2022-10-25 07:41] LABS: Hematocrit 25.1 % (33.0-51.0); Hemoglobin 7.4 g/dL (11.5-16.0); Mean Corpuscular HGB 21.4 pg (26.0-34.0); Mean Corpuscular HGB Conc 29.5 g/dL (31.5-36.5); Mean Corpuscular Volume 73 fL (80-100); Mean Platelet Volume 9.9 fL (9.1-12.4); Platelet Count 282 K/mm3 (150-400); RDW Coefficient Variation 18.9 % (11.7-14.2); RDW Standard Deviation 49.1 fL (35.1-46.3); Red Blood Cell Count 3.45 M/mm3 (3.80-5.20); White Blood Cell Count 2.89 K/mm3 (4.00-11.30)
[2022-10-25 08:15] LABS: BAND PERCENT MAN 6 % (0-8); BASOPHILS PERCENT MAN 0 % (0-2); EOSINOPHILS PERCENT MAN 0 % (0-6); LYMPHOCYTES ABSOLUTE MAN 0.46 K/mm3 (0.84-5.20); LYMPHOCYTES PERCENT MAN 16 % (21-46); METAMYELOCYTE ABSOLUTE MAN 0.02 K/mm3 (0.00-0.00); METAMYELOCYTE PERCENT MAN 1 % (0-0); MONOCYTES PERCENT MAN 7 % (4-13); NEUTROPHILS ABSOLUTE MAN 2.19 K/mm3 (1.96-9.15); SEG NEUTROPHILS PERCENT MAN 70 % (41-73); TOTAL CELLS COUNTED 100
--- NOTE | 2022-10-25 14:01 | NUR ---
Met with pt and family at bedside yesterday afternoon, to review pt's wishes. Pt's daughter Hanny, and grandson's Paola were present along with pt. The pt was alert and oriented, and states she wants to remain a full code. It appears there is some confusion by family members as to the extent of B-cell lymphoma. The family has stated the pt's cancer is "in remission". However, after confirmation with Dr. Ramirez's office and Dr. Contreras, the pt is not in fact in remission and has active B-cell Lymphoma according to the abd biopsy results taken during EGD on 10/23. Dr. Sweeney is planning to meet with family today, as J-tube is not an option. The pt is out of treatment options according to Dr. Saha office, and they have recommended hospice to the family already, which family declined. Plan to meet with family and pt either with Dr. Sweeney or afterwards if needed.
--- NOTE | 2022-10-25 14:16 | NUR ---
PHYSICIAN COMMUNICATION DR. CA CONTACTED THIS RN IN REGARDS TO BIOPSY RESULTS AND CONTINUING WITH J-TUBE PLACEMENT. RELAYED THIS INFORMATION TO DR CARDONA AND SUGGESTED THAT DR CA BE CALLED DIRECTLY IN THIS MATTER TO PRESERVE QUALITY OF INFORMATION BEING PASSED. DR CARDONA CONTACTED 30ISH MINUTES LATER FOR FOLLOW UP, STATED THAT DR CA DID NOT WISH TO CONTINUE WITH J-TUBE PLACEMENT TODAY AND THAT HER TEAM WAS CONTACTING ONCOLOGY FOR FURTHER RECOMMENDATIONS. STATED THEY WOULD ROUND ON PATIENT AFTER.
--- NOTE | 2022-10-25 15:12 | NUR ---
Met with Dr. Contreras at pt's bedside along with pt and family. Dr. Contreras informed the family the pt does indeed still have active cancer. He discussed the J-tube, explaining there are risks involved, and it would not help with appetite, weight, nor would it stop the cancer. He asked that they discuss this further before making a decision. We also discussed the recommendations previously given from oncology. Dr. Saha and Alyse had stated there were no further treatments available, and had recommended hospice at her last oncology appointment. Dr. Sweeney is aware of the meeting today, she states she will follow up with the pt and family.
--- NOTE | 2022-10-25 16:22 | NUR ---
"Spiritual Care Visit | Nurse Request Pt. is awake in bed and welcomes my visit. Pt. is surrounded by family at bedside. Pt. verbalizes that she is a woman of frank. Facilitate a life review and consider matters of frank and belief. Prayed with Pt. and the family. Pt. and family verbalize gratitude for the spiritual care visit."
--- NOTE | 2022-10-25 16:29 | NUR ---
SHIFT SUMMARY FAMILY MEETING THIS AM TO DETERMINE COURSE OF TREATMENT. PALLIATIVE, GI, SURGERY ROUNDING THIS SHIFT. SOME MEDS HELD THIS AM FOR POTENTIAL SURGERY THIS AFTERNOON. SURGERY NOT BEING DONE TODAY. WAITING FOR FAMILY DECISION ON TREATMENT WISHES. WILL CONTINUE TO MONITOR
[2022-10-25 20:20] VITALS: BP 135/88
[2022-10-26 05:10] LABS: Hematocrit 26.4 % (33.0-51.0); Hemoglobin 7.7 g/dL (11.5-16.0); Mean Corpuscular HGB 21.3 pg (26.0-34.0); Mean Corpuscular HGB Conc 29.2 g/dL (31.5-36.5); Mean Corpuscular Volume 73 fL (80-100); Mean Platelet Volume 9.7 fL (9.1-12.4); Platelet Count 246 K/mm3 (150-400); RDW Coefficient Variation 18.6 % (11.7-14.2); RDW Standard Deviation 48.8 fL (35.1-46.3); Red Blood Cell Count 3.61 M/mm3 (3.80-5.20); White Blood Cell Count 2.82 K/mm3 (4.00-11.30)
[2022-10-26 06:04] LABS: BAND PERCENT MAN 7 % (0-8); BASOPHILS ABSOLUTE MAN 0.02 K/mm3 (0.00-0.23); BASOPHILS PERCENT MAN 1 % (0-2); EOSINOPHILS PERCENT MAN 0 % (0-6); LYMPHOCYTES ABSOLUTE MAN 0.45 K/mm3 (0.84-5.20); LYMPHOCYTES PERCENT MAN 16 % (21-46); MONOCYTES ABSOLUTE MAN 0.16 K/mm3 (0.16-1.47); MONOCYTES PERCENT MAN 6 % (4-13); NEUTROPHILS ABSOLUTE MAN 2.17 K/mm3 (1.96-9.15); SEG NEUTROPHILS PERCENT MAN 70 % (41-73); TOTAL CELLS COUNTED 100
[2022-10-26 06:07] LABS: Bun/Creatinine Ratio 49.9 (12.0-20.0); Calcium, Blood 7.6 mg/dL (8.5-10.1); Creatinine, Blood 0.5 mg/dL (0.40-1.00); Phosphorus, Blood 3.6 mg/dL (2.5-4.9)
--- NOTE | 2022-10-26 06:20 | NUR ---
SHIFT SUMMARY PT IS A&O4, UP WITH 1 PERSON TO BSC, RA, [place] RUNNING AT 50CC, PT HAD TWO LOOSE BM'S OVERNIGHT, VSS, NO COMPLAINTS OF PAIN OR ACUTE OVERNIGHT EVENTS, CONTINUE POC
[2022-10-26 07:17] VITALS: BP 109/77
--- NOTE | 2022-10-26 16:35 | NUR ---
SHIFT SUMMARY PATIENT DISCUSSION WITH DOC THIS AM WAS TO CONTINUE WITH J-TUBE PLACEMENT AT THIS TIME. PATIENT HAS NO C/O PAIN OR DISCOMFORT THIS SHIFT, DOWNGRADED DIET PER REQUEST TO FULL LIQUID PATIENT HAS KNOWN SWALLOW ISSUES. CHARGE TO START MIDLINE AND CONTINUE CLINAMIX AND LIPIDS UNTIL PROPER SIZE J-TUBE IS OBTAINED VIA SURGERY SERVICES. WILL CONTINUE TO MONITOR
[2022-10-26 20:11] VITALS: BP 126/88
[2022-10-27 00:56] VITALS: BP 156/95
--- NOTE | 2022-10-27 04:05 | NUR ---
SHIFT SUMMARY PT IS ALERT AND ORIENTED X4. NOT MUCH PO INTAKE. WEAK COUGH PT REPORTS SHE HAS HAD THE COUGH FOR A LONG TIME. PT REPOSITIONED BUT DECLINED PILLOWS UNDER HER HIPS. NO ACUTE CHANGES OVERNIGHT. DENIES PAIN OTHER THAN HER BUTTOCKS. REPORTS PAIN HAS BEEN GETTING SLIGHTLY BETTER DAILY. PT CALLS APPROPRIATELY. BED IS IN THE LOWEST POSITION WITH CALL LIGHT IN REACH.
[2022-10-27 06:40] LABS: Bun/Creatinine Ratio 34.5 (12.0-20.0); Calcium, Blood 7.3 mg/dL (8.5-10.1); Creatinine, Blood 0.52 mg/dL (0.40-1.00); Magnesium, Blood 1.8 mg/dL (1.6-2.4); Potassium, Blood 4.1 mmol/L (3.5-5.5)
[2022-10-27 07:29] VITALS: BP 126/82
[2022-10-27 15:03] VITALS: BP 119/76
--- NOTE | 2022-10-27 18:30 | NUR ---
SHIFT SUMMARY PT IS A&O X4. ROOM AIR. CONTINENT/INCONTINENT, SBA TO BEDSIDE COMMODE. PT'S FAMILY PRESENT AND SUPPORTIVE THROUGH OUT MOST OF SHIFT. PT CONSULTED WITH DR. CA FOR J-TUBE INSERTION THIS AM, BUT PT HAD DRANK COFFEE WITH CREAM SO WAS UNABLE TO HAVE PROCEDURE TODAY. PLAN IS FOR PT TO BE NPO TONIGHT AT MIDNIGHT.
[2022-10-27 20:21] VITALS: BP 143/90
[2022-10-28 02:57] VITALS: BP 110/65
[2022-10-28 05:23] LABS: Calcium, Blood 7.4 mg/dL (8.5-10.1); Creatinine, Blood 0.55 mg/dL (0.40-1.00); Potassium, Blood 3.7 mmol/L (3.5-5.5)
--- NOTE | 2022-10-28 05:49 | NUR ---
PT HAS BEEN RESTIN IN BED AOX4 NO DISTRESS NOTED. PT CONTINUES TO HAVE A VERY WEAK COUGH. DENIES PAIN AT THIS TIME. PT 1 PERSON TO BEDSIDE COMMODE. NO DISTRESS NOTED. WILL CONTINUE TO MONITOR.
--- NOTE | 2022-10-28 05:51 | NUR ---
IGNITION RISK ASSESSMENT HAS BEEN DONE WITH HOURLY RONDING NO HAZARDS FOUND.
[2022-10-28 07:31] VITALS: BP 122/79
[2022-10-28 08:28] LABS: Source, Urine Clean Catch
[2022-10-28 08:42] LABS: Appearance, Urine Clear (Clear); Bilirubin, Urine Neg (Neg); Blood, Urine 2+ (Neg); Color, Urine Yellow (P-Yellow); Glucose Qualitative, Urine 3+ (Neg); Ketones, Urine Neg (Neg); Leukocyte Esterase, Urine 1+ (Neg); Nitrite, Urine Neg (Neg); Protein, Urine 1+ (Neg); Specific Gravity, Urine 1.015 (1.003-1.022); Urobilinogen, Urine NORM (Normal); pH, Urine 6.5 (5.0-8.0)
[2022-10-28 08:50] LABS: Bacteria Mod /hpf; Squamous Epithelial Cells Few /hpf (Few)
--- NOTE | 2022-10-28 09:00 | NUR ---
pt resting in bed, awake, a/ox4, pleasant and cooperative with care, follows commands well, denies pain, states she's doing ok, is npo pending possible tube placement, lungs are clear a bit dim in bases, reports a productive cough, on r/a, resp even and unlabored, hrr, no edema noted, ppp+2, cap refill <3 sec, vs stable, afebrile, iv is power glide to cullen site is clear and patent, infusing clinimix and lipids, btx4, abd flat soft nontender, voids via bsc, briefs also in place, skin c/w/d, maew, weak, kevin, call light in reach.
--- NOTE | 2022-10-28 13:07 | NUR ---
Dr. Tam consulted with pt and her daughter Hanny this morning regarding J-tube placement. According to pt, he explained "really well" what the realities of the J-tube would look like. Pt states it "sounds like way more trouble than it's worth", and reaffirms her desire to begin comfort care with the goal of discharge home with [facility] as soon as able. Placed call to [facility], Shandra states they can admit pt as soon as tomorrow. In attempt to assist CM who is unavailable at the moment, will fax over information and needed equipment to [facility], and notify CM when she is available. Family aware of hospice admission as well as comfort care until discharge and on board with the plan. Pt will return to her own home where she lives with a daughter and 2 granddaughters as caregivers. Pt is now agreeable to DNR status. Received v/o from Dr. Erlin Barrera for comfort care, DNR, and hospice.
--- NOTE | 2022-10-28 18:09 | NUR ---
pt has chosen to not have feeding tube placed after speaking with surgeon, pallative care spoke with her and family and changed her to comfort care, she wants to continue clinimix until discharge, no further changes this shift, call light in reach.
--- NOTE | 2022-10-29 04:12 | NUR ---
PT HAS BEEN RESTING COMFORTABLY THOURGHOUT SHIFT. DENIES ANY PAIN AT THIS TIME. NO DISTRESS NOTED WILL CONTINUE TO MONITOR.
--- NOTE | 2022-10-29 04:13 | NUR ---
IGNITION ASSESSMENT HAS BEEN COMPLETED WITH HOURLY ROUNDING NO HAZARD FOUND.
[2022-10-29] MEDS ORDERED: MORP20L SL (11:41)
--- NOTE | 2022-10-29 12:15 | NUR ---
DISCHARGE AND SHIFT SUMMARY PATIENT DISCHARGED HOME ON HOSPICE. PATIENT ALERT BUT WEAK. IV DC'D PRIOR TO DISCHARGE. DISCHARGE INSTRUCTIONS REVIEWED WITH DAUGHTER. HOSPICE TO MEET PATIENT AT THE HOUSE. DRESSING IN PLACE ON BILATERAL ARMS DRY AND INTACT. PATIENT ONLY EATING BITES. CONTINUES TO HAVE LOOSE STOOLS. BARRIER CREAM APPLIED TO BUTTOCKS, ATTENDS USED FOR INCONTINENCE.
== END 2022-10-29 12:15 | disposition hospice, home (50) | DRG 380 ==
LOC: ER 19:38 → MEDS 10-20 02:40 → ENPENDDIS 10-23 17:21 → MEDS 10-29 12:15
PROVIDERS: Family Medicine; Internal Medicine; Internal Medicine Gastroenterology; Student in an Organized Health Care Education/Training Program; ADMIT Internal Medicine
PROC: 0DB78ZX Excision of Stomach, Pylorus, Via Natural or Artificial Opening Endoscopic, Diagnostic (ICD-10-PCS; 2022-10-22)
PROC: 3E0336Z Introduction of Nutritional Substance into Peripheral Vein, Percutaneous Approach (ICD-10-PCS; 2022-10-22)
PROC: 0D768ZZ Dilation of Stomach, Via Natural or Artificial Opening Endoscopic (ICD-10-PCS; principal; 2022-10-22 15:00)
PROC: 0DB68ZX Excision of Stomach, Via Natural or Artificial Opening Endoscopic, Diagnostic (ICD-10-PCS; 2022-10-22 15:00)
PROC: 0DHA7UZ Insertion of Feeding Device into Jejunum, Via Natural or Artificial Opening (ICD-10-PCS; 2022-10-25)
DX: K31.1 Adult hypertrophic pyloric stenosis (principal); E43 Unspecified severe protein-calorie malnutrition; B37.81 Candidal esophagitis; R64 Cachexia; C88.4 Extranodal marginal zone B-cell lymphoma of mucosa-associated lymphoid tissue [MALT-lymphoma]; Z68.1 Body mass index [BMI] 19.9 or less, adult; R62.7 Adult failure to thrive; Z51.5 Encounter for palliative care; Z66 Do not resuscitate; E87.6 Hypokalemia; E03.9 Hypothyroidism, unspecified; R11.2 Nausea with vomiting, unspecified; I25.10 Atherosclerotic heart disease of native coronary artery without angina pectoris; K25.9 Gastric ulcer, unspecified as acute or chronic, without hemorrhage or perforation; N18.30 Chronic kidney disease, stage 3 unspecified; D72.819 Decreased white blood cell count, unspecified; D63.1 Anemia in chronic kidney disease; K29.50 Unspecified chronic gastritis without bleeding; D50.9 Iron deficiency anemia, unspecified; E78.5 Hyperlipidemia, unspecified; I12.9 Hypertensive chronic kidney disease with stage 1 through stage 4 chronic kidney disease, or unspecified chronic kidney disease; Z88.5 Allergy status to narcotic agent; Z95.1 Presence of aortocoronary bypass graft; Z79.899 Other long term (current) drug therapy; Z79.51 Long term (current) use of inhaled steroids; I25.2 Old myocardial infarction; Z98.41 Cataract extraction status, right eye; Z92.3 Personal history of irradiation; Z92.21 Personal history of antineoplastic chemotherapy; Z85.028 Personal history of other malignant neoplasm of stomach
CPT/HCPCS: 36415; 80048; 80053; 81001; 81003; 82330; 82607; 82728; 82746; 82947; 83540; 83550; 83605; 83690; 83735; 84100; 84145; 84443; 84478; 85025; 87040; 87086; 88305; 88341; 88342; 94760; 96360; 96361; 99284-25; A9270; C1726; C1751; J0612; J1450; J1650; J2001; J2405; J2704; J3411; J7030; J7120